=== PATIENT | male | born 2000 | race Caucasian/White ===

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

== ENCOUNTER 2021-02-16 08:34 | Emergency (ER) | payer MEDICAID, SELFPAY ==
[2021-02-16 08:35] VITALS: BP 131/77; PULSE 86; RESP 16; TEMP 35.6; O2SAT 98; BMI 20.9
--- NOTE | 2021-02-16 08:54 | EDS_ITS ---
HPI History of Present Illness Chief Complaint: Nausea/Vomiting Narrative Narrative: Patient presents with nausea and vomiting for the past 6 hours. He has some abdominal cramping and some epigastric pain. No lower abdominal pain no back pain no tearing sensation. No recent fevers or chills no no sick contacts. He does not have diarrhea. He does admit to smoking marijuana PFSH PFSH Home Medications ondansetron HCl [Zofran] 4 mg PO Q8H #7 tab 02/16/21 [Rx Last Taken Unknown] Allergy/AdvReac Type Severity Reaction Status Date / Time No Known Allergies Allergy Verified 02/16/21 08:34 Social History Smoking Status: Current every day smoker tobacco type: cigarettes ROS ROS ED ROS Narrative Past medical history: Reviewed, unremarkable Medications: Reviewed Social history: Admits to THC Review of systems: All systems negative except as indicated General: No fever Eyes: No visual changes ENT: No upper airway congestion, normal voice Neck: No neck pain Cardiovascular: No chest pain Respiratory: No shortness of breath or cough Gastrointestinal: Epigastric pain, nausea vomiting. No diarrhea. Genitourinary: No dysuria Musculoskeletal: Denies myalgias no difficulty with ambulation Skin: No rash Neurological: No memory loss, confusion or any focal weakness Psych: No recent behavioral changes Hematologic: No easy bleeding or easy bruising EXAM Physical Exam Narrative Exam Narrative: Physical exam General: Patient appears in some distress. He appears uncomfortable Head: Normocephalic, Atraumatic Eyes: Conjunctiva not pale ENT: Somewhat dry mucous membranes Neck: Supple, Nontender, No lymphadenopathy Cardiovascular: Regular rate, Regular rhythm Respiratory: No distress, CTA bilaterally Abdomen: Soft, some epigastric tenderness to palpation however no guarding or rebound. No right upper quadrant pain with a negative Solis's. No lower abdominal pain including no pain at McBurney's. Back: Nontender, Normal Inspection. Negative for: CVA tenderness Extremities: Nontender, No edema Skin: Normal color, No rash Neurological: Alert, Normal Strength, Normal Sensation Const Vital Signs: 02/16/21 08:35 Temperature 96.1 F L Temperature Source Temporal Pulse Rate 86 Respiratory Rate 16 Blood Pressure 131/77 H Blood Pressure Mean 95 Pulse Ox 98 Oxygen Delivery Method Room Air MDM MDM MDM Narrative Medical decision making narrative: Patient has an unremarkable work-up other than slight leukocytosis which is likely reactive. He improved with IV fluids and antiemetics. He will be discharged in stable condition he was cautioned against THC. Lab Data Labs: Laboratory Results - last 24 hr 02/16/21 02/16/21 08:44 08:44 WBC 14.3 H RBC 5.39 Hgb 16.8 H Hct 48.3 MCV 89.6 MCH 31.2 MCHC 34.8 RDW Std Deviation 40.1 RDW Coeff of Jurgen 12.3 Plt Count 314 MPV 8.5 Immature Gran % (Auto) 0.600 Neut % (Auto) 87.3 H Lymph % (Auto) 5.9 L [place] % (Auto) 5.7 Eos % (Auto) 0.1 Baso % (Auto) 0.4 Absolute Neuts (auto) 12.5 H Absolute Lymphs (auto) 0.85 Nucleated RBC % 0 Sodium 138 Potassium 4.4 Chloride 107 Carbon Dioxide 26.0 Anion Gap 5 BUN 9 Creatinine 0.88 Estim Creat Clear Calc 129.94 Est GFR (MDRD) Af Amer 143 Est GFR (MDRD) Non-Af 118 BUN/Creatinine Ratio 10.3 Glucose 116 H Calcium 10.1 Total Bilirubin 0.90 AST 30 ALT 29 Alkaline Phosphatase 102 Total Protein 8.2 Albumin 4.9 Globulin 3.3 Albumin/Globulin Ratio 1.5 Lipase 36 L Discharge Plan Triage Chief Complaint: Nausea/Vomiting ED Provider: Robles Rubio Dx/Rx/DC Orders Clinical Impression: Nausea & vomiting Instructions: ED Vomiting (Adult) Prescriptions: New ondansetron HCl [Zofran] 4 mg tablet 4 mg PO Q8H Qty: 7 RF: 0 Primary Care Provider: Andie Villagran Referrals: Andie Villagran MD [Primary Care Provider] - 3-5 Days Disposition Disposition: Home, Self Care
[2021-02-16] MEDS: Ondansetron 4 MG/2 ML Vial IV (08:59)
[2021-02-16] MEDS: 0.9% Normal Saline 1,000 ML 1000 ML IV (08:59)
[2021-02-16 09:00] LABS: Absolute Lymphocyte Count 0.85 X10^3/uL (0.83-4.51); Absolute Neutrophil Count 12.5 X10^3/uL (2.0-7.7); Basophil# 0.06 X10^3/uL; Basophil% 0.4 % (0-1); Eosinophil# 0.01 X10^3/uL; Eosinophils% 0.1 % (0-5); Hematocrit 48.3 % (40-54); Hemoglobin 16.8 g/dL (13.0-16.5); Lymphocyte # 0.85 X10^3/ul (0.83-4.51); Lymphocyte % 5.9 % (19-41); Mean Corp Hgb Conc 34.8 g/dL (32-36); Mean Corpuscular Hgb 31.2 pg (27.0-32.0); Mean Corpuscular Volume 89.6 fL (80-94); Mean Platelet Vol. 8.5 fl (6.2-12.0); Monocyte# 0.81 X10^3/uL; Monocyte% 5.7 % (0-10); NRBC Flagged by Analyzer 0 % (0-5); Neutrophil % 87.3 % (47-70); Platelet Count 314 K/mm3 (150-450); RBC Distribution Width CV 12.3 % (11.6-14.6); RBC Distribution Width SD 40.1 fl (35.1-43.9); Red Blood Count 5.39 M/mm3 (4.6-6.2); White Blood Count 14.3 K/mm3 (4.4-11.0)
[2021-02-16] MEDS: Dicyclomine 20 MG/2 ML Vial IM (09:00)
[2021-02-16 09:13] LABS: ALB/GLOB Ratio 1.5 RATIO (0.9-2.4); AST(SGOT) 30 U/L (15-37); Alanine Aminotransfer ALT/SGPT 29 U/L (16-61); Albumin, Serum 4.9 g/dL (3.2-5.0); Alkaline Phosphatase 102 U/L (45-117); Anion Gap 5 (5-15); BUN 9 mg/dL (7-18); BUN/Creat Ratio 10.3 RATIO (10-20); Calcium,Total 10.1 mg/dL (8.5-10.1); Chloride 107 mmol/L (98-107); Creatinine, Serum 0.88 mg/dL (0.70-1.30); EST Glomerular Filtration Rate 118 mL/min (>60); Est Glom Filt Rate - Afr Amer 143 mL/min (>60); Estimated Creatinine Clearance 129.94 ml/min; Globulin 3.3 g/dL (2.2-4.2); Glucose 116 mg/dL (74-106); Lipase 36 U/L (73-393); Potassium 4.4 mmol/L (3.5-5.1); Protein, Total 8.2 g/dL (6.4-8.2); Sodium Level 138 mmol/L (136-145)
[2021-02-16] MEDS: Famotidine 200 MG/20 ML MDV 20 MG in 0.9% Normal Saline (Pres. free 8 ML 300 MG IV (09:25)
[2021-02-16] MEDS: Haloperidol Lactate 5 MG/ML Vial 2 MG IV (09:32)
[2021-02-16 10:56] VITALS: BP 142/80; PULSE 65; RESP 16; O2SAT 98
== END 2021-02-16 10:56 | disposition home or self-care (01) ==
PROVIDERS: Emergency Provider Emergency Medicine; PCP Pediatrics
DX: R11.2 Nausea with vomiting, unspecified (principal); F17.210 Nicotine dependence, cigarettes, uncomplicated
CPT/HCPCS: 80053; 83690; 85025; 96361; 96372; 96374; 96375; 99283; J7030; A4216; J2405; J3490

== ENCOUNTER 2021-02-21 06:43 | Emergency (ER) | payer MEDICAID, SELFPAY ==
[2021-02-21 06:44] VITALS: BP 131/86; PULSE 81; RESP 16; TEMP 35.9; O2SAT 97; BMI 22.4
--- NOTE | 2021-02-21 07:11 | EX.ED.DYSGE1 ---
HPI History of Present Illness Chief Complaint: Abd Pain Informant: patient Narrative Narrative: Recurrent abdominal pain nausea vomiting today. History of marijuana use was seen a week ago for similar. He states he cut back on marijuana however last use was 2 days ago. Nausea vomiting this morning. No hematemesis. He took his last Zofran with improvement of his nausea and symptoms. He is tolerating oral intake. He reports hot showers does help symptoms. He has been using marijuana for the past 2 years. In addition states since being seen last time roommate diagnosed with Covid. He is not vaccinated. He reports subjective fevers chills nonproductive cough. No diarrhea. No urinary symptoms. Denies dyspnea. No other complaints. Prior similar symptoms: Yes [facility] Medical History (Updated 02/21/21 @ 08:[address] Jamison Amezcua DO) ADHD Home Medications ondansetron 4 mg PO Q6H PRN #10 tab 02/21/21 [Rx Last Taken Unknown] Allergy/AdvReac Type Severity Reaction Status Date / Time No Known Allergies Allergy Verified 02/16/21 08:34 Social History Smoking Status: Current every day smoker tobacco type: cigarettes ROS ROS ED Constitutional Constitutional ED: Reports chills and fever(s); Denies sweats Eyes Eyes: Denies change in vision ENT ENT ED: Denies dysphagia or sore throat Cardiovascular Cardiovascular: Denies chest pain, leg edema, palpitations or racing heartbeat Respiratory/Chest Respiratory/Chest: Reports cough; Denies dyspnea or dyspnea on exertion Gastrointestinal Gastrointestinal: Reports abdominal pain, nausea and vomiting; Denies diarrhea Genitourinary Genitourinary ED: Denies dysuria, hematuria or urinary frequency Musculoskeletal Musculoskeletal: Denies back pain, extremity pain or neck pain Integumentary Denies rash or wounds Neurologic Neurologic: Denies headache(s), paresthesias or weakness EXAM Physical Exam Const Vital Signs: 02/21/21 06:44 02/21/21 06:50 Temperature 96.7 F L Temperature Source Temporal Pulse Rate 81 Respiratory Rate 16 Respiratory Effort Normal Respiratory Depth Normal Respiratory Pattern Normal Blood Pressure 131/86 H Blood Pressure Mean 101 Pulse Ox 97 Oxygen Delivery Method Room Air Positive well nourished and well developed General Appearance ED: well developed and NAD HEENT Reports moist mucous membranes normocephalic and atraumatic Eyes PERRL, EOMs intact bilaterally and conjunctivae normal General Eye ED: Yes normal appearance of both eyes Neck no lymphadenopathy and supple General: Negative for tenderness Chest Wall Chest: Negative for tenderness Resp normal respiratory effort and normal air movement Effort and Inspection: symmetric chest movement; Negative for respiratory distress Cardio regular rate, regular rhythm and no murmurs Peripheral Pulses: pulses 2+ throughout GI normal to inspection, nondistended, normoactive bowel sounds and non-tender GI Narrative: Negative Solis's or McBurney's tenderness. No guarding or rebound. Palpation: Negative for guarding or rebound tenderness present Back/Spine no CVA tenderness and no thoracic nor lumbar tenderness Extremity normal to inspection General Extremety ED: Negative for edema or tenderness General Extremity: Negative for edema Neuro oriented x3 and no sensory deficits noted Sensorium / Orientation: awake and alert Skin no rashes or lesions noted and no wounds MDM MDM MDM Narrative Medical decision making narrative: Patient nontoxic vital signs stable nonsurgical abdomen. Currently asymptomatic with his abdominal pain nausea and vomiting status post his Zofran this morning. Is having Covid symptoms with exposure. Rapid Covid obtained through the ED. 0800: Patient had 1 emesis in the ED. Additional Zofran, capsaicin cream. Covid testing return negative discussed possibility of false negative with the patient. He will continue to isolate, signs and symptoms discussed to return. Prescription Zofran sent to his pharmacy. Discussed refraining from THC. All questions were answered. Discharge Plan Triage Chief Complaint: Abd Pain Other Complaint: Nausea/Vomiting Shortness of Breath ED Provider: Jamison Amezcua Dx/Rx/DC Orders Clinical Impression: Cannabis hyperemesis syndrome concurrent with and due to cannabis abuse, Mild nausea and vomiting, Suspected COVID-19 virus infection Instructions: Coronavirus Disease 2019 (COVID-19): Overview, Cannabinoid Hyperemesis Syndrome Prescriptions: New ondansetron 4 mg tablet,disintegrating 4 mg PO Q6H PRN (Reason: nausea and vomiting) Qty: 10 RF: 0 Primary Care Provider: Andie Villagran Referrals: Andie Villagran MD [Primary Care Provider] - 3-5 Days Disposition Disposition: Home, Self Care
[2021-02-21] MEDS: Ondansetron ODT 4 MG Tablet 8 MG PO (08:04)
[2021-02-21] MEDS: Capsaicin 0.025% 1 APPLIC Tube TOPICAL (08:15)
[2021-02-21 08:38] VITALS: BP 138/74; PULSE 72; RESP 15; O2SAT 98
== END 2021-02-21 08:39 | disposition home or self-care (01) ==
PROVIDERS: Emergency Provider Emergency Medicine; PCP Pediatrics
DX: R06.02 Shortness of breath (principal); R50.9 Fever, unspecified; R05 Cough; F17.210 Nicotine dependence, cigarettes, uncomplicated; F12.10 Cannabis abuse, uncomplicated
CPT/HCPCS: 87426; 99283

== ENCOUNTER 2025-02-14 00:29 | Emergency (ER) | payer SELFPAY ==
[2025-02-14 00:29] VITALS: BP 136/79; PULSE 80; RESP 16; TEMP 36.5; O2SAT 100; BMI 24.0
[2025-02-14] MEDS: Lidocaine 1% (20 ml mdv) 20 ML Vial 10 ML INFILT (00:58)
--- NOTE | 2025-02-14 01:09 | EX.ED.UPPERE ---
HPI History of Present Illness HPI Narrative: 24-year-old male [id number] got a fishhook stuck in his left hand at 830 tonight. Tetanus up-to-date. No other complaints. Chief Complaint: Foreign Body Informant: patient Occured/Mechanism Mechanism/Context: Yes injury Onset/Context/Timing Onset: Today and Hours Context: Sudden Onset Timing: Continuous Quality of Pain: Sharp Current Severity: Mild Maximum Severity: Mild Narrative Narrative: 21-year-old male no past medical history [id number]. He has a fishhook embedded in his left palm thenar eminence. Occurred around 8:30 at night. Tetanus up-to-date. Tetanus Immunization: 5-10 years Prior similar symptoms: No Recent Illness/Hospitalization: No PFSH PFSH Medical History ADHD Home Medications ?Medication ?Instructions ?Recorded ?Last Taken ?Type cephalexin 500 mg capsule 500 mg PO Q8H 5 days #15 caps 02/14/25 Unknown Rx Allergy/AdvReac Type Severity Reaction Status Date / Time No Known Allergies Allergy Verified 02/14/25 00:30 Social History Smoking Status: Current every day smoker tobacco type: cigarettes ROS ROS ED ROS Narrative Denies recent illness. Constitutional Constitutional ED: Denies chills or fever(s) Eyes Eyes: Denies blurry vision ENT ENT ED: Denies ear pain Cardiovascular Cardiovascular: Denies chest pain Respiratory/Chest Respiratory/Chest: Denies cough or dyspnea Gastrointestinal Gastrointestinal: Denies abdominal pain Genitourinary Genitourinary ED: Denies dysuria Musculoskeletal Musculoskeletal: Denies back pain Integumentary Denies abscess Neurologic Neurologic: Denies headache(s) Psychiatric Psychiatric: Denies anxiety Endocrine Endocrinology: Denies cold intolerance Hematologic/Lymphatic Hematologic/Lymphatic: Denies easy bleeding, easy bruising or lymphadenopathy Allergic/Immunologic Allergic/Immunologic ED: Denies mouth swelling, tongue swelling or urticaria EXAM Physical Exam Narrative Exam Narrative: Well-appearing on 21-year-old male. Vital signs stable afebrile. H EENT exam normal. Lungs clear. Heart regular rhythm rate about 80 no murmur. Chest wall ribs nontender. Abdomen soft nontender. Moving all 4 extremities neurovascular intact. Left hand thenar eminence he has a hook buried under the skin but there is part of it outside the skin. He has full flexion extension of the hand. There is no sign of hematoma. No signs of infection. No pus redness or streaks. He is able to flex and extend all digits of the hand. Is normal touch sensation. No bony deformity. Const Vital Signs: 02/14/25 00:29 Temperature 97.7 F L Temperature Source Oral Pulse Rate 80 Respiratory Rate 16 Blood Pressure 136/79 H Blood Pressure Mean 98 Pulse Ox 100 Positive well nourished and well developed; Negative for obese, cachectic, contractures or unkempt General Appearance ED: well developed and NAD; Negative for unkempt, cachectic, contractures, cyanotic or diaphoretic Nutritional Appearance: Negative for cachectic or obese HEENT Reports moist mucous membranes normocephalic and atraumatic Eyes PERRL and EOMs intact bilaterally Neck full ROM and supple Chest Wall inspection of chest normal and palpation of chest normal Resp normal respiratory effort and clear to auscultation bilaterally Cardio regular rate, regular rhythm, S1 normal heart sound, S2 normal heart sound and no murmurs GI non-tender, non-distended and no masses Auscultation: normoactive bowel sounds Palpation: soft; Negative for tender Back/Spine no CVA tenderness Extremity full ROM; Negative for normal to inspection Extremity Narrative: [place] embedded in the left hand palmar aspect thenar eminence. He has neurovascularly intact. No signs of infection. No cellulitis. No swelling. Full flexion-extension of all digits. General Extremety ED: Yes other findings; Negative for edema General Extremity: other findings; Negative for edema Neuro oriented x3, CN's II-XII intact bilaterally, moves all extremities, no focal motor deficits and no sensory deficits noted Sensorium / Orientation: alert, oriented to person, oriented to place and oriented to time Motor Exam: strength 5/5 throughout Psych mental status grossly normal Appearance: Negative for unkempt Skin Skin Narrative: [place] embedded left palmar hand over the thenar eminence. Rashes: no rashes Trauma: no lacerations or abrasions MDM MDM MDM Narrative Medical decision making narrative: 21-year-old male [id number] left hand has a fishhook embedded. Area was locally anesthetized with lidocaine. Cleaned with iodine. I made a small incision with a scalpel and remove the fishhook. He tolerated it well. Was then irrigated. Again washed. He washed it with soap and water. He will be cleaned and dressed. We give the Keflex. Be placed on Keflex 500 3 times daily for 5 days. He was given instructions watch any signs of infection and return if those are seen. He is comfortable being discharged to home. Procedures Other Procedures Procedure(s): Left hand fishhook thenar eminence. Cleaned with iodine. Local anesthetized lidocaine. Small incision was made with scalpel. Remove the hook. Irrigated and cleaned the area thoroughly. Cleaned with soap and water. Will be cleaned and dressed. To be placed on Keflex times a day for 5 days was given instructions return if he sees any signs of infection. Patient tolerated well. Discharge Plan Triage Chief Complaint: Foreign Body ED Provider: Heriberto Toscano Dx/Rx/DC Orders Clinical Impression: Acute foreign body of right hand Instructions: ED Foreign Body Soft Tissue Prescriptions: New cephalexin 500 mg capsule 500 mg PO Q8H 5 Days Qty: 15 0RF Primary Care Provider: Andie Villagran Referrals: Andie Villagran MD [Primary Care Provider] - As Needed Activity Restrictions/Additional Instructions: If your hand gets a lot more swollen, red, fever, red streaks, pus or severe pain return. These are all signs of infection. Clean daily with soap and water and apply antibiotic ointment to the outside The antibiotic Keflex 1 pill 3 times a day for 5 days to try to prevent any infection. Do not let it soak in any dirty water for 1 week. Print Language: Wallisian Disposition Disposition: Home, Self Care
--- NOTE | 2025-02-14 01:19 | ED.RN ---
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 MD did not have concerns of pt being intoxicated. drove self to ED.
--- OUTSIDE RECORDS SUMMARY | 2025-02-14 01:27 | XMS RPT_ITS | CCD ---
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 Result Comment: The validity of the calculated GFR GFRAA in patients over 70 years has not been determined. Clinical correlation is essential. Performed By: #### L 100.0100, L500.4050, L501.2450 #### [facility] [address] [place], [address] ECRCL 129.94 ml/min Normal [facility] Comment on above: Performed By: #### L 100.0100, L500.4050, [id number] #### [facility] [address] [place], [address] EST GFR - AA 143 mL/min Normal >60 [facility] Comment on above: Result Comment: Afri can Marshallese GFR Calc Performed By: #### L 100.0100, L500.4050, [id number] #### [facility] [address] [place], [address] GAP 5 Normal 5-15 [facility] Comment on above: Performed By: #### L 100.0100, L500.4050, L501.2450 #### [facility] [address] [place], [address] GFR/1.73 sq M.predicted among non-blacks MDRD (S/P/Bld) [Vol rate/Area] 118 mL/min/{1.73_m2} Normal >60 [facility] Comment on above: Result Comment: Non- GFR Calc Performed By: #### L 100.0100, L500.4050, L501.2450 #### [facility] [address] [place], [address] Globulin (S) [Mass/Vol] 3.3 g/dL Normal 2.2-4.2 [facility] Comment on above: Performed By: #### L 100.0100, L500.4050, L501.2450 #### [facility] [address] [place], [address] Glucose [Mass/Vol] 116 mg/dL High 74-106 [facility] Comment on above: Result Comment: Fast ing Glucose result from 100 to 125 mg/dL suggests IMPAIRED HOMEOSTASIS per A.D.A. criteria. Please note revised GLUCOSE reference range effective 2017. Performed By: #### L 100.0100, L500.4050, L501.2450 #### [facility] [address] [place], [address] Potassium [Moles/Vol] 4.4 mmol/L Normal 3.5-5.1 [facility] Comment on above: Performed By: #### L 100.0100, L500.4050, L501.2450 #### [facility] [address] [place], [address] Sodium [Moles/Vol] 138 mmol/L Normal 136-145 [facility] Comment on above: Performed By: #### L 100.0100, L500.4050, [id number] #### [facility] [address] [place], [address] T PROT 8.2 g/dL Normal 6.4-8.2 [facility] Comment on above: Performed By: #### L 100.0100, L500.4050, [id number] #### [facility] [address] [place], [address] Urea nitrogen [Mass/Vol] 9 mg/dL Normal 7-18 [facility] Comment on above: Performed By: #### L 100.0100, L500.4050, L501.2450 #### [facility] [address] [place], [address] Emergency Department Summary on 02-16-2021 Emergency Department Summary [facility] Medical Records Department [address] [place] [address] Emergency Department Summary 02/16/21 MR#: [id number] Acct: [id number] Name: CONRAD LESLIE Rep #: [id number] : 2000 20 From: Robles Rubio MD PCP: Dr. Nuha Whitlock MD Status:REG ER Location: ED HPI History of Present Illness Chief Complaint: Nausea/Vomiting Narrative Narrative: Patient presents with nausea and vomiting for the past 6 hours. He has some abdominal cramping and some epigastric pain. No lower abdominal pain no back pain no tearing sensation. No recent fevers or chills no no sick contacts. He does not have diarrhea. He does admit to smoking marijuana PFSH PFSH Home Medications ondansetron HCl [Zofran] 4 mg PO Q8H #7 tab 02/16/21 [Rx Last Taken Unknown] Allergy/AdvReac Type Severity Reaction Status Date / Time No Known Allergies Allergy Verified 02/16/21 08:34 Social History Smoking Status: Current every day smoker tobacco type: cigarettes ROS ROS ED ROS Narrative Past medical history: Reviewed, unremarkable Medications: Reviewed Social history: Admits to THC Review of systems: All systems negative except as indicated General: No fever Eyes: No visual changes ENT: No upper airway congestion, normal voice Neck: No neck pain Cardiovascular: No chest pain Respiratory: No shortness of breath or cough Gastrointestinal: Epigastric pain, nausea vomiting. No diarrhea. Genitourinary: No dysuria Musculoskeletal: Denies myalgias no difficulty with ambulation Skin: No rash Neurological: No memory loss, confusion or any focal weakness Psych: No recent behavioral changes Hematologic: No easy bleeding or easy bruising EXAM Physical Exam Narrative Exam Narrative: Physical exam General: Patient appears in some distress. He appears uncomfortable Head: Normocephalic, Atraumatic Eyes: Conjunctiva not pale ENT: Somewhat dry mucous membranes Neck: Supple, Nontender, No lymphadenopathy Cardiovascular: Regular rate, Regular rhythm Respiratory: No distress, CTA bilaterally Abdomen: Soft, some epigastric tenderness to palpation however no guarding or rebound. No right upper quadrant pain with a negative Solis's. No lower abdominal pain including no pain at McBurney's. Back: Nontender, Normal Inspection. Negative for: CVA tenderness Extremities: Nontender, No edema Skin: Normal color, No rash Neurological: Alert, Normal Strength, Normal Sensation Const Vital Signs: 02/16/21 08:35 Temperature 96.1 F L Temperature Source Temporal Pulse Rate 86 Respiratory Rate 16 Blood Pressure 131/77 H Blood Pressure Mean 95 Pulse Ox 98 Oxygen Delivery Method Room Air MDM MDM MDM Narrative Medical decision making narrative: Patient has an unremarkable work-up other than slight leukocytosis which is likely reactive. He improved with IV fluids and antiemetics. He will be discharged in stable condition he was cautioned against THC. Lab Data Labs: Laboratory Results - last 24 hr 02/16/21 02/16/21 08:44 08:44 WBC 14.3 H RBC 5.39 Hgb 16.8 H Hct 48.3 MCV 89.6 MCH 31.2 MCHC 34.8 RDW Std Deviation 40.1 RDW Coeff of Jurgen 12.3 Plt Count 314 MPV 8.5 Immature Gran % (Auto) 0.600 Neut % (Auto) 87.3 H Lymph % (Auto) 5.9 L Clinch % (Auto) 5.7 Eos % (Auto) 0.1 Baso % (Auto) 0.4 Absolute Neuts (auto) 12.5 H Absolute Lymphs (auto) 0.85 Nucleated RBC % 0 Sodium 138 Potassium 4.4 Chloride 107 Carbon Dioxide 26.0 Anion Gap 5 BUN 9 Creatinine 0.88 Estim Creat Clear Calc 129.94 Est GFR (MDRD) Af Amer 143 Est GFR (MDRD) Non-Af 118 BUN/Creatinine Ratio 10.3 Glucose 116 H Calcium 10.1 Total Bilirubin 0.90 AST 30 ALT 29 Alkaline Phosphatase 102 Total Protein 8.2 Albumin 4.9 Globulin 3.3 Albumin/Globulin Ratio 1.5 Lipase 36 L Discharge Plan Triage Chief Complaint: Nausea/Vomiting ED Provider: Robles Rubio Dx/Rx/DC Orders Clinical Impression: Nausea vomiting Instructions: ED Vomiting (Adult) Prescriptions: New ondansetron HCl [Zofran] 4 mg tablet 4 mg PO Q8H Qty: 7 RF: 0 Primary Care Provider: Nuha Whitlock Referrals: Nuha Whitlock MD [Primary Care Provider] - 3-5 Days Disposition Disposition: Home, Self Care What to do if you have Problems For any increased pain, shortness of breath, bleeding, nausea or vomiting, chest pain, or any unexpected problems, contact your Primary Care Provider. Call [facility] ([phone]) or report to the closest Emergency Room. Call 911 if necessary. 02/16/21 1050 Cosigner Signature (if applicable): CC: Dr. Nuha Whitlock MD Signed Normal [facility]ase[facility] 02-16-2021 Lipase [Catalytic activity/Vol] 36 U/L Low 73-393 [facility] Comment on above: Performed By: #### L 100.0100, L500.4050, L501.2450 #### [facility] [address] [place], [place], [id number] Progress Noteon 01-04-2021 Chip Person Authentication Interface Message Text Patient ID: Conrad Leslie is a 20 y.o. male. His chief complaint(s) include: 20 YEAR WELL CHILD Assessment 1. Routine general medical examination at a health care facility 2. ADHD, predominantly inattentive type Plan Conrad was seen today for 20 year well child. Diagnoses and all orders for this visit: Routine general medical examination at a health care facility - PHQ9 Assessment With Score - Health Risk Assessment - CRAFFT ADHD, predominantly inattentive type - lisdexamfetamine (VYVANSE) 20 MG capsule; Take 1 Capsule (20 mg) by mouth every morning Patient wanting to restart ADHD medication. Struggling at work staying on task. Adderall caused weight loss and strattera didn't work well in the past. Will try patient on vyvanse 20mg (start low dose) and see if it helps without causing weight loss. May need to increase dose. Will follow up in 1 month for recheck. Return in about 1 year (around 01/04/2022) for well check, ADHD medication recheck in 1 months/needs work excuse for visit. Subjective He is unaccompanied. 20 YEAR WELL CHILD Complications after delivery: parental limits and consequences for unacceptable behavior Home: Conrad eats meals with family, has an adult to turn to for help, is permitted and able to make independent decisions and pays bills. Conrad has no home risk identified. Education: Conrad is in the work force and is showing signs of inattention. (Struggling with focusing at work/would like to restart adhd medication). Eating: Conrad eats regular meals including fruits and vegetables, eats breakfast, drinks non-sweetened liquids and has a calcium source. Conrad does not limit fast food. 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 Drugs: Conrad uses drugs (marijuana) and does vape. Conrad does not use tobacco and does not use alcohol. Safety: Conrad has a violence free home, has peer relationships free from violence and uses seat belt. Conrad does not use phone/text while driving. Sex: The patient has a sexual partner. The patient is interested in females. The patient has 1 current sexual partners. The patient has had 2 lifetime sexual partners. The patient's sexual orientation is heterosexual. The patient's gender identity is cisgender. Typically, the patient uses condoms and oral contraceptives as current contraceptive method. The patient has not had an STD. The patient's partner has had an STD: no. STD screening completed within the last year. Suicidality: Conrad has ways to cope with stress and displays self-confidence. Conrad has no problems with sleep, has no depression, has no anxiety, does not have mood swings, has no suicidal ideation and has no homicidal ideation. PHQ-9 Score: 0 Output Urine and Stool Pattern: Urine and Stool Pattern: Normal stool pattern, no constipation, normal urine pattern, no nocturnal enuresis. Stool Consistency: soft Sleep Sleeping Difficulty: no difficulty sleeping Hours of sleep at a time: 6 (to 8 hours) Teen Anticipatory Guidance The following anticipatory guidance was reviewed during the visit: Nutrition: limit junk food/fast food and soft drinks. Safety: home safety and use safety helmet/gear with activities. Social: avoid or limit screen time and parental limits and consequences for unacceptable behavior. Health: age appropriate dental care, age appropriate sleep habits, elevated noise and hearing, avoid situations where drugs and alcohol are present, recognize that sexual feelings are normal but delay having sex, contraception/practi ce safe sex/ use condoms, practice abstinence- the safest way to prevent and STDs, discuss athletic conditioning/ weight training/weight supplements, learn to manage time and activities and be responsible for attendance/ homework/ course selection. Screenings Previous Vaccine Reactions: No. Life events information was reviewed-no referral needed (social determinant questionnaire completed: no concerns at this time) Tuberculosis Concerns: Negative Tuberculosis Screen Concerns: no exposure to Tb or person with positive ppd Hearing Vision Concerns: The caregiver has no concerns about the patient's hearing. The caregiver has no concerns about the patient's vision. Hyperlipidemia Concerns: Positive Hyperlipidemia Screen Concerns: parent or grandparent with [place] angina peripheral or cerebrovascular disease <55 years (PGF) Negative Hyperlipidemia Screen Concerns: no parent with cholesterol >240mg/dl Primary Care Review of Systems Objective Vital Signs 01/04/21 1702 01/04/21 1706 BP: (!) 142/62 124/68 Pulse: 85 80 Temp: 36.7 C (98.1 F) TempSrc: Temporal Weight: 71.7 kg Height: 179.1 cm Body mass index is 22.36 kg/m . Physical Exam Constitutional: He a (more content not included)... Normal [facility] Vital Signs Date Time Vital Sign Value Performing Clinician Dalton choi 10-26-2024 01:23-0400 Body temperature 97.52 [degF] TACHO HANSON MD [facility] 10-26-2024 01:23-0400 Diastolic Blood Pressure Non-Invasive 71 mm[Hg] TACHO HANSON MD [facility] 10-26-2024 01:23-0400 Heart rate 86 /min TACHO HANSON MD [facility] 10-26-2024 01:23-0400 Respiratory rate 16 /min TACHO HANSON MD [facility] 10-26-2024 01:23-0400 Systolic Blood Pressure Non-Invasive 127 mm[Hg] TACHO HANSON MD [facility] 08-12-2024 07:07-0500 Blood Pressure Location TACHO HANSON MD [facility] 08-12-2024 07:07-0500 Blood Pressure Method TACHO HANSON MD [facility] 08-12-2024 07:07-0500 Body temperature 99.68 [degF] TACHO HANSON MD [facility] 08-12-2024 07:07-0500 Body weight 77.3 kg TACHO HANSON MD [facility] 08-12-2024 07:07-0500 Diastolic Blood Pressure Non-Invasive 77 mm[Hg] TACHO HANSON MD [facility] 08-12-2024 07:07-0500 Heart rate 100 /min TACHO HANSON MD [facility] 08-12-2024 07:07-0500 Respiratory rate 16 /min TACHO HANSON MD [facility] 08-12-2024 07:07-0500 Systolic Blood Pressure Non-Invasive 129 mm[Hg] TACHO HANSON MD [facility] 05-22-2023 19:00-0500 Heart rate 72 /min ISMA GALLEGOS MD [facility] 05-22-2023 18:26-0500 Heart rate 71 /min ISMA GALLEGOS MD [facility] 05-22-2023 18:23-0500 Blood Pressure Location ISMA GALLEGOS MD [facility] 05-22-2023 18:23-0500 Blood Pressure Method ISMA GALLEGOS MD [facility] 05-22-2023 18:23-0500 Body temperature 97.52 [degF] ISMA GALLEGOS MD [facility] 05-22-2023 18:23-0500 Body weight 72.7 kg ISMA GALLEGOS MD [facility] 05-22-2023 18:23-0500 Diastolic Blood Pressure Non-Invasive 72 mm[Hg] ISMA GALLEGOS MD [facility] 05-22-2023 18:23-0500 Heart rate 162 /min ISMA GALLEGOS MD [facility] 05-22-2023 18:23-0500 Respiratory rate 18 /min ISMA GALLEGOS MD [facility] 05-22-2023 18:23-0500 Systolic Blood Pressure Non-Invasive 107 mm[Hg] ISMA GALLEGOS MD [facility] 09-30-2022 17:51-0400 Body height 180.[address] VAL FELDMAN MD [facility] 09-30-2022 17:51-0400 Body temperature 98.42 [degF] DR VAL FELDMAN MD [facility] 09-30-2022 17:51-0400 Body weight 72.[address] VAL FELDMAN MD [facility] 09-30-2022 17:51-0400 Diastolic Blood Pressure Non-Invasive [address] VAL FELDMAN MD [facility] 09-30-2022 17:51-0400 Heart rate 98 /min DR VAL FELDMAN MD [facility] 09-30-2022 17:51-0400 Respiratory rate 20 /min DR VAL FELDMAN MD [facility] 09-30-2022 17:51-0400 Systolic Blood Pressure Non-Invasive [address] VAL FELDMAN MD [facility] 09-07-2021 01:15-0400 Diastolic blood pressure 70 mm[Hg] DR PEGGY STINSON MD [facility] 09-07-2021 01:15-0400 Heart rate 89 /min DR PEGGY STINSON MD [facility] 09-07-2021 01:15-0400 Respiratory rate 16 /min DR PEGGY STINSON MD [facility] 09-07-2021 01:15-0400 Systolic blood pressure 124 mm[Hg] DR PEGGY STINSON MD [facility] 09-06-2021 23:26-0400 Body temperature 96.8 [degF] DR PEGGY STINSON MD [facility] 09-06-2021 23:26-0400 Diastolic blood pressure 74 mm[Hg] DR PEGGY STINSON MD [facility] 09-06-2021 23:26-0400 Heart rate 87 /min DR PEGGY STINSON MD [facility] 09-06-2021 23:26-0400 Respiratory rate 20 /min DR PEGGY STINSON MD [facility] 09-06-2021 23:26-0400 Systolic blood pressure 122 mm[Hg] DR PEGGY STINSON MD [facility] 09-06-2021 21:30-0400 Body height 180.[address] PEGGY STINSON MD [facility] 09-06-2021 21:30-0400 Body temperature 95.54 [degF] DR PEGGY STINSON MD [facility] 09-06-2021 21:30-0400 Body weight 72.[address] PEGGY STINSON MD [facility] 09-06-2021 21:30-0400 Diastolic blood pressure 75 mm[Hg] DR PEGGY STINSON MD [facility] 09-06-2021 21:30-0400 Heart rate 89 /min DR PEGGY STINSON MD [facility] 09-06-2021 21:30-0400 Respiratory rate 22 /min DR PEGGY STINSON MD [facility] 09-06-2021 21:30-0400 Systolic blood pressure 133 mm[Hg] DR PEGGY STINSON MD [facility] Encounters Encounter Date Encounter Type Care Provider Facility Start: 10-26-2024 End: 10-26-2024 Emergency department patient visit TACHO HANSON MD [facility] Start: 08-12-2024 End: 08-12-2024 Emergency department patient visit TACHO HANSON MD [facility] Start: 05-22-2023 End: 05-22-2023 Emergency department patient visit ISMA GALLEGOS MD Facility:B Start: 05-22-2023 End: 05-22-2023 Emergency department patient visit ISMA GALLEGOS MD [facility] Start: 09-30-2022 End: 09-30-2022 Emergency department patient visit NONE PHYSICIAN Facility:[facility] Start: 09-30-2022 End: 09-30-2022 Emergency department patient visit DR VAL FELDMAN MD [facility] Start: 09-06-2021 End: 09-07-2021 Emergency department patient visit DR PEGGY STINSON MD [facility] Procedures Date Procedure Procedure Detail Performing Clinician None (qualifier value) DR WILLIAMS STINSON MD Payers Date Payer Category Payer Self-pay 2022 Unknown [id number] 2000 Unknown [id number] 2001 Unknown [id number] [id number] 2001 Unknown [id number] 2001 Unknown [id number] Social History Date Type Detail Facility Never smoked tob acco (finding) [facility] Sex Assigned At [facility] Start: 05-22-2023 Tobacco smoking status Heavy t obacco smoker (finding) [facility] Start: 10-26-2013 Sex Male (finding) [facility] Functional Status Date Assessment Result Facility 10-26-2024 Functional Status Independent [facility] 10-26-2024 Functional Status Standard Safet y ID band on, Call device within reach, Bed in low position, Wheels locked, Upper/Half-Length side-rails up, Phone within reach, personal items within reach, Bedside Cart Locked, Visitor at bedside [facility] 08-12-2024 Functional Status ID band on, Call device within reach, Bed in low position, Wheels locked, Upper/Half-Length side-rails up, Safety level maintained [facility] 05-22-2023 Functional Status ID band on, Call device within reach, Bed in low position, Wheels locked, Bedside Cart Locked [facility] Mental Status Date Assessment Result Facility 10-26-2024 Mental Status Orientation Oriented x 4 [facility] 10-26-2024 Mental Status [facility] 08-12-2024 Mental Status Oriented x 4 [facility] 05-22-2023 Mental Status Oriented x 4 [facility] Clinical Notes 09-07-2021 to 10-26-2024 Note Date & Type Note Facility 10-26-2024 Hospital Discharg e instructions Patient Education 10/26/2024 02:50:07 Vomiting (Adult) Vomiting (Adult) Vomiting is a common symptom that may be due to different causes. These include gastroenteritis (stomach flu), food poisoning and gastritis. There are other more serious causes of vomiting which may be hard to diagnose early in the illness. Therefore, it is important to watch for the warning signs listed below. The main danger from repeated vomiting is dehydration. This is due to excess loss of water and minerals from the body. When this occurs, your body fluids must be replaced. Home care If symptoms are severe, rest at home for the next 24 hours. Because your symptoms may be from an infection, wash your hands often and well. If soap and water are not available, use alcohol-based diagnostic assistant to keep from spreading the infection to others. Wash your hands for at least 20 seconds. Humming the happy birthday song twice while you wash is an easy way to make sure you've washed for 20 seconds. Wash your hands after using the toilet, before and after preparing food, before eating food, after changing a diaper, cleaning a wound, caring for a sick person, and blowing your nose, coughing, or sneezing. You should also wash your hands after caring for someone who is sick, touching pet food, or treats, and touching an animal, or animal waste. You may use acetaminophen or NSAID medicines like ibuprofen or naproxen to control fever, unless another medicine was prescribed. If you have chronic liver or kidney disease or ever had a stomach ulcer or gastrointestinal bleeding, talk with your doctor before using these medicines. Aspirin should never be used in anyone under 18 years of age who is ill with a fever. It may cause severe liver damage. Don't use NSAID medicines if you are already taking one for another condition (like arthritis) or are on aspirin (such as for heart disease, or after a stroke) Don't use tobacco and or drink alcohol, which may worsen your symptoms. If medicines for vomiting were prescribed, take as directed. Once vomiting stops, then follow these guidelines: During the first 12 to 24 hours follow the diet below: Fruit juices. Apple, grape juice, clear fruit drinks, and electrolyte replacement drinks. Beverages. Soft drinks without caffeine; mineral water (plain or flavored), decaffeinated tea and coffee. Soups. Clear broth and bouillon Desserts. Plain gelatin, ice pops, and fruit juice bars. As you feel better, you may add 6 to 8 ounces of yogurt per day. During the next 24 hours you may add the following to the above: Hot cereal, plain toast, bread, rolls, crackers Plain noodles, rice, mashed potatoes, chicken noodle or rice soup Unsweetened canned fruit such as applesauce, bananas (avoid pineapple and citrus) Limit caffeine and chocolate. No spices or seasonings except salt. During the next 24 hours: Gradually resume a normal diet, as you feel better and your symptoms lessen. Follow-up care Follow up with your healthcare provider, or as advised. When to seek medical advice Call your healthcare provider right away if any of these occur: Constant right-sided lower belly pain or increasing general belly pain Continued vomiting (unable to keep liquids down) for 24 hours Vomiting blood or coffee grounds Swollen belly Frequent diarrhea (more than 5 times a day); blood (red or black color) or mucus in diarrhea Reduced urine output or extreme thirst Weakness, dizziness or fainting Unusually drowsy or confused Fever of 100.4 F (38 C) oral or higher, or as directed Yellow color of the eyes or skin [id number] [employer]. [address] [place] [address]. All rights reserved. This information is not intended as a substitute for professional medical care. Always follow your healthcare professional's instructions. Follow Up Care 10/26/2024 01:17:06 With:Follow up with primary care provider Address:Unknown When:2-4 days [facility] 10-26-2024 Note Discharge Instructions Thank you for allowing [facility] to assist you with your healthcare needs. The following is important discharge information regarding your hospital visit. Diagnosis from Today's Visit Vomiting What to Do Next Instructions from Your Care Team No qualifying data available. Post Acute Orders No qualifying data available. You Need to Schedule the Following Appointments Follow Up with Follow up with primary care provider When:Within 2-4 days Allergies NKA Medications Please ask your primary doctor or pharmacist before taking any other medication not listed, including over the counter drugs, herbal medications, vitamins and or supplements as they may interact with your home medications. Please take this list to your next doctor s visit. Bring all medications you take, including over the counter medications, herbals and other supplements with you to your doctor s visit. Patients and families are reminded to discard old lists and to update any records with all medication providers or retail pharmacies. Education Materials Vomiting (Adult) Vomiting is a common symptom that may be due to different causes. These include gastroenteritis (stomach flu), food poisoning and gastritis. There are other more serious causes of vomiting which may be hard to diagnose early in the illness. Therefore, it is important to watch for the warning signs listed below. The main danger from repeated vomiting is dehydration. This is due to excess loss of water and minerals from the body. When this occurs, your body fluids must be replaced. Home care If symptoms are severe, rest at home for the next 24 hours. Because your symptoms may be from an infection, wash your hands often and well. If soap and water are not available, use alcohol-based diagnostic assistant to keep from spreading the infection to others. Wash your hands for at least 20 seconds. Humming the happy birthday song twice while you wash is an easy way to make sure you've washed for 20 seconds. Wash your hands after using the toilet, before and after preparing food, before eating food, after changing a diaper, cleaning a wound, caring for a sick person, and blowing your nose, coughing, or sneezing. You should also wash your hands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
== END 2025-02-14 01:43 | disposition home or self-care (01) ==
PROVIDERS: Emergency Provider Emergency Medicine; Visit Provider Emergency Medicine
DX: S60.551A Superficial foreign body of right hand, initial encounter (principal); F17.210 Nicotine dependence, cigarettes, uncomplicated; X58.XXXA Exposure to other specified factors, initial encounter
CPT/HCPCS: 99283